=== PATIENT | male | born 1980 ===

== ENCOUNTER 2021-06-07 17:32 | Emergency (ER) | payer SELFPAY ==
[~2021-06-07] VITALS: Ht 175.3 cm; Wt 79.0 kg
[2021-06-07 17:48] VITALS: BP 138/95
[2021-06-07] MEDS ORDERED: HYDR-3965 PO (18:34)
[2021-06-07] MEDS ORDERED: SULF1TAB49 PO (18:34)
[2021-06-07] MEDS ORDERED: CEPH-585 PO (18:34)
== END 2021-06-07 18:46 | disposition home or self-care (01) ==
LOC: ER 17:32
DX: S60.420A Blister (nonthermal) of right index finger, initial encounter (principal); X58.XXXA Exposure to other specified factors, initial encounter; Y93.89 Activity, other specified; Y92.89 Other specified places as the place of occurrence of the external cause; Y99.8 Other external cause status
CPT/HCPCS: 99283